=== PATIENT | male | born 2000 | race Caucasian/White ===

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

== ENCOUNTER 2021-05-15 16:09 | Emergency (ER) | payer OTHER ==
[~2021-05-15] VITALS: Ht 170.2 cm; Wt 83.9 kg
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
--- NOTE | 2021-05-15 16:20 | NUR ---
MADDI MALONE AT BEDSIDE FOR EVAL.
[2021-05-15] MEDS ORDERED: ONDANSETRON HCL/PF 4 MG/2 ML VIAL ONE (16:27)
[2021-05-15] MEDS ORDERED: MORPHINE SULFATE INJ 4 MG/ML DISP.SYRIN ONE (16:27)
[2021-05-15] MEDS ORDERED: IV NS 0.9% 1,000 ML BAG IV ONE (16:30)
[2021-05-15] MEDS ORDERED: MORPHINE SULFATE INJ 2 MG/ML DISP.SYRIN IV ONE (16:30)
[2021-05-15] MEDS ORDERED: ONDANSETRON HCL/PF 4 MG/2 ML VIAL IVP ONE (16:30)
[2021-05-15] MEDS ORDERED: KETOROLAC TROMETHAMINE INJ 30 MG/ML VIAL IV ONE (16:30)
--- NOTE | 2021-05-15 16:30 | NUR ---
IV LINE ESTABLISHED BLOOD DRAWN AND SENT TO LAB.
--- NOTE | 2021-05-15 16:43 | NUR ---
URINAL GIVEN BUT UNABLE TO PROVIDE URINE SPECIMEN THIS TIME.
[2021-05-15 16:46] LABS: BASOPHILS # (AUTO) 0.1 K/uL (0.0-0.2); BASOPHILS % (AUTO) 1.2 % (0.0-2.0); EOSINOPHILS % (AUTO) 1.1 % (0.0-6.0); HEMATOCRIT 44 % (39-51); HEMOGLOBIN 15.1 g/dL (13.5-17.5); LYMPHOCYTES # (AUTO) 2.9 K/uL (0.8-4.8); LYMPHOCYTES % (AUTO) 44.6 % (20.0-44.0); MEAN CORPUSCULAR HGB CONC 34 g/dl (31.0-36.0); MEAN CORPUSCULAR VOLUME 89 fL (80-96); MONOCYTES # (AUTO) 0.5 K/uL (0.1-1.30); MONOCYTES % (AUTO) 7.9 % (2.0-12.0); NEUTROPHILS % (AUTO) 45.2 % (43.0-81.0); PLATELET COUNT (AUTO) 362 K/uL (150-450); RED BLOOD CELL COUNT(AUTO) 4.92 MIL/uL (4.5-6.0); WHITE BLOOD COUNT (AUTO) 6.6 K/uL (4.3-11.0)
[2021-05-15 16:54] LABS: CALCIUM, SERUM 8.8 mg/dL (8.5-10.1); POTASSIUM 3.9 mmol/L (3.5-5.1)
[2021-05-15 17:00] LABS: ALBUMIN 4.2 g/dL (3.4-5.0); BILIRUBIN,DIRECT 0.1 mg/dL (0.0-0.2); BILIRUBIN,TOTAL 0.4 mg/dL (0.2-1.0); TOTAL PROTEIN, SERUM 7.1 g/dL (6.4-8.2)
--- NOTE | 2021-05-15 17:31 | NUR ---
URINE SPECIMEN COLLECTED AND SENT TO LAB.
[2021-05-15 17:51] LABS: BILIRUBIN,URINE SMALL (NEGATIVE); COLOR,URINE YELLOW (YELLOW); LEUKOCYTE ESTERASE ,URINE NEGATIVE (NEGATIVE); NITRITE, URINE NEGATIVE (NEGATIVE); PROTEIN,URINE TRACE mg/dl (NEGATIVE); UGLUCOSE NEGATIVE (NEGATIVE); UROBILINOGEN,URINE 0.2 EU/dL (0.2)
[2021-05-15 18:09] LABS: BACTERIA,URINE 1+ /HPF (None Seen); MUCUS,URINE Few /LPF (None Seen)
[2021-05-15] MEDS ORDERED: ONDA4TAB5 PO (18:10)
[2021-05-15] MEDS ORDERED: IBUP-1955 PO (18:10)
--- NOTE | 2021-05-15 18:37 | NUR ---
AUTO BUMPER MECHANIC AT BEDSIDE FOR ULTRASOUND.
[2021-05-15] MEDS ORDERED: DOXY-326 PO (18:54)
[2021-05-15] MEDS ORDERED: CEFTRIAXONE 500 MG VIAL ONE (18:59)
[2021-05-15] MEDS ORDERED: LIDOCAINE /MPF 1% VIAL 5 ML VIAL ONE (18:59)
[2021-05-15] MEDS ORDERED: CEFTRIAXONE 500 MG VIAL IM ONE (19:00)
[2021-05-15] MEDS ORDERED: DOXYCYCLINE HYCLATE (100 MG) 100 MG TABLET ONE (19:11)
[2021-05-15 19:16] VITALS: BP 125/73
--- NOTE | 2021-05-15 19:16 | NUR ---
IV removed. Catheter intact and site benign. Pressure and 4x4 applied to site. No bleeding noted. Patient discharged to home in stable condition. Written and verbal after care instructions given. Patient verbalizes understanding of instruction.
[2021-05-15] MEDS ORDERED: DOXYCYCLINE HYCLATE (100 MG) 100 MG TABLET PO ONE (19:30)
== END 2021-05-15 19:17 | disposition home or self-care (01) ==
LOC: ER 16:09
DX: N45.1 Epididymitis (principal); R10.31 Right lower quadrant pain; F17.200 Nicotine dependence, unspecified, uncomplicated
CPT/HCPCS: 36415; 76870; 80048; 80076; 81001; 83690; 85025; 96361; 96372; 96374; 99285; J0696; J2405; J3490; J7030; J2270

== ENCOUNTER 2024-11-10 10:27 | Emergency (ER) | payer OTHER ==
[~2024-11-10] VITALS: Ht 170.2 cm; Wt 79.4 kg
[~2024-11-10 10:27] MED LIST: DOXY-326 PO; IBUP-1955 PO; ONDA4TAB5 PO
[2024-11-10 10:44] VITALS: BP 110/72; TEMP 98.6
[2024-11-10] MEDS ORDERED: IBUPROFEN 600 MG TABLET ONE (11:04)
[2024-11-10] MEDS: IBUPROFEN 600 MG TABLET PO ONE (11:06)
[2024-11-10] MEDS ORDERED: NAPR-1164 PO (13:01)
[2024-11-10 13:22] VITALS: O2SAT 100
== END 2024-11-10 13:24 | disposition home or self-care (01) ==
LOC: ER 10:27
DX: S93.491A Sprain of other ligament of right ankle, initial encounter (principal); F17.200 Nicotine dependence, unspecified, uncomplicated; Z79.899 Other long term (current) drug therapy; W17.89XA Other fall from one level to another, initial encounter; Y93.89 Activity, other specified; Y92.89 Other specified places as the place of occurrence of the external cause; Y99.8 Other external cause status
CPT/HCPCS: 73610-TC; 73630-TC

== ENCOUNTER 2024-12-05 16:50 | Emergency (ER) | payer OTHER ==
[~2024-12-05] VITALS: Ht 170.2 cm; Wt 77.1 kg
[~2024-12-05 16:50] MED LIST changes: +NAPR-1164 PO
[2024-12-05] MEDS ORDERED: CEFTRIAXONE 500 MG VIAL ONE (18:42)
[2024-12-05] MEDS ORDERED: AZITHROMYCIN 250 MG TABLET ONE (18:42)
[2024-12-05] MEDS ORDERED: LIDOCAINE /MPF 1% VIAL 5 ML VIAL ONE (18:45)
[2024-12-05] MEDS: CEFTRIAXONE 500 MG VIAL IM ONE (18:55)
[2024-12-05] MEDS: AZITHROMYCIN 250 MG TABLET PO ONE (18:55)
[2024-12-05 19:00] LABS: APPEARANCE,URINE CLEAR (CLEAR); BILIRUBIN,URINE 1+ (NEGATIVE); BLOOD, URINE 2+ Ery/uL (NEGATIVE); COLOR,URINE YELLOW (YELLOW); KETONES,URINE TRACE mg/dL (NEGATIVE); LEUKOCYTE ESTERASE ,URINE NEGATIVE (NEGATIVE); NITRITE, URINE NEGATIVE (NEGATIVE); PROTEIN,URINE 2+ mg/dl (NEGATIVE); UGLUCOSE NEGATIVE (NEGATIVE)
[2024-12-05 19:05] LABS: ADD URINE CULTURE NO; BACTERIA,URINE Few /HPF (None Seen); SQUAMOUS EPITHELIAL CELL,UR None Seen /HPF (None Seen)
[2024-12-05 19:35] VITALS: BP 122/78; TEMP 98; O2SAT 96
[2024-12-08 23:09] LABS: CHLAMYDIA TRACHOMATIS NAA Negative (Negative); NEISSERIA GONORRHOEAE NAA Negative (Negative)
== END 2024-12-05 19:35 | disposition home or self-care (01) ==
LOC: ER 18:05
DX: R30.0 Dysuria (principal); N50.811 Right testicular pain; N50.812 Left testicular pain; F17.200 Nicotine dependence, unspecified, uncomplicated
CPT/HCPCS: 99285; 96372; 76870; 87086; 81001; 87491; 87591; J0696; J3490